=== PATIENT | male | born 1960 | race Caucasian/White ===

== ENCOUNTER → 2016-10-21 | Outpatient (CLI) | payer OTHER ==
[~2016-10-21] VITALS: Ht 182.9 cm; Wt 100.1 kg
[~2016-10-21] MED LIST: FIBETAB PO; MULT-506 PO; OMEG10007 PO
[2016-10-21 09:12] VITALS: BP 136/97; PULSE 85; Ht 182.9 cm; Wt 100.1 kg
== END | disposition home or self-care (01) ==
LOC: C.NEUR 08:58
PROVIDERS: ATTEND Internal Medicine Pulmonary Disease
DX: Z00.00 Encounter for general adult medical examination without abnormal findings (principal); R73.01 Impaired fasting glucose; G47.33 Obstructive sleep apnea (adult) (pediatric); E78.5 Hyperlipidemia, unspecified

== ENCOUNTER → 2016-10-22 | Day surgery (SDC) | payer BC, OTHER ==
[2016-10-10 11:02] VITALS: BMI 28.0
[~2016-10-22] VITALS: Ht 182.9 cm; Wt 95.5 kg
[~2016-10-22] MED LIST changes: +LIDOCAINE HCL 2% 2 ML VIAL (20MG/ML) ONE; +MIDAZOLAM HCL 1 MG/ML 2ML VIAL ONE; +ONDANSETRON INJ 2 MG/ML 2 ML VIAL ONE; +PROPOFOL IV EMULSION 10 MG/ML 20 ML VIAL IV ONE; +SODIUM CHLORIDE 0.9% 500ML 500 ML IV ONE
[2016-10-22 09:32] VITALS: Ht 182.9 cm; Wt 95.5 kg
--- NOTE | 2016-10-22 10:18 | Endo History and Physical ---
History & Physical Date of Service: Oct 22, 2016. Chief Complaint: 10 YEAR FOLLOW UP Referring Physician: DR DRIVER History of Present Illness 55 yo CM who presents for screening colonoscopy. Past Surgical History Hx Cardiac Surgery: No Hx Internal Defibrillator: No Hx Pacemaker: No Hx Abdominal Surgery: No Hx of Implantable Prosthesis: No Hx Post-Op Nausea and Vomiting: No Hx Cancer Surgery: No Hx Thoracic Surgery: No Hx Orthopedic: No Hx Urinary Tract Surgery: No Family History None Social History Smoking Status: Former Smoker Hx Substance Use: No Hx Alcohol Use: Yes (OCCASSIONALLY) Allergies Coded Allergies: No Known Allergies (Unverified , 10/22/16) Current Medications Reported Home Medications Medications Dose Route/Sig Max Daily Dose Days Date Category Fiber Complete (Fiber) 62.5 Mg Tab 1 Tab PO BID 10/10/16 Reported [place]-3 (Fish Oil) 1 Ea Cap 1 Cap PO BID 10/10/16 Reported Multivitamin (Multivitamins) Tab 1 Tab PO BID 10/10/16 Reported Vital Signs Weight (Kilograms): 95.45 Height (Feet): 6 Height (Inches): 0 Date Time Temp Pulse Resp B/P Pulse Ox O2 Delivery O2 Flow Rate FiO2 10/22/16 09:39 36.6 82 20 132/84 96 Room Air Physical Exam General Appearance: WD/WN, no apparent distress Respiratory/Chest: Auscultation: breath sounds normal Cardiovascular: Heart Auscultation: RRR Abdomen: Bowel Sounds: normal Inspection & Palpation: soft, non-distended, no tenderness, guarding & rebound Assessment and Plan Assessment: 55 yo CM who presents for screening colonoscopy. Plan: Proceed with colonoscopy.
--- NOTE | 2016-10-22 10:38 | Discharge Instructions ---
Endoscopy Patient Instructions Date / Procedure(s) Performed Oct 22, 2016. Colonoscopy Allergy Information Coded Allergies: No Known Allergies (Unverified , 10/22/16) Discharge Date / Findings Oct 22, 2016. Diverticulosis Colon polyp Medication Instructions Stopped Medication(s): FISH OIL OK to resume all medications today as prescribed Reported Home Medications Medications Dose Route/Sig Max Daily Dose Days Date Category Fiber Complete (Fiber) 62.5 Mg Tab 1 Tab PO BID 10/10/16 Reported [place]-3 (Fish Oil) 1 Ea Cap 1 Cap PO BID 10/10/16 Reported Multivitamin (Multivitamins) Tab 1 Tab PO BID 10/10/16 Reported Provider Instructions Activity Restrictions - No exercising or heavy lifting for 24 hours. - Do not drink alcohol the day of the procedure. - Do not drive a car or operate machinery until the day after the procedure. - Do not make any important decisions or sign important papers in 24 hours after the procedure. Following Day: - Return to full activity which may include returning to work/school. Diet Start your diet with liquids and light foods (jello, soup, juice, toast). Then eat your usual diet if not nauseated. Treatment For Common After Affects For mild abdominal pain, bloating, or excessive gas: - Rest - Eat lightly - Lie on right side Follow-Up Information Follow-up with DR DRIVER as scheduled Anesthesia Information What You Should Know You have had a procedure that required some medicine to reduce anxiety and discomfort. This treatment is called moderate sedation. After receiving the treatment, you may be sleepy, but you will be able to breathe on your own. The effects of the treatment may last for several hours. Follow these instructions along with Activity/Diet recommendations noted above: * Do NOT do anything where dizziness or clumsiness would be dangerous. * Rest quietly at home today, then you can be up and about tomorrow. * Have a responsible person stay with you the rest of today. * You may have had an I.V. today. If so, you may take the dressing off later today. Recommendations Call your doctor if: * Trouble breathing * Continuous vomiting for more than 24 hours * Temperature above 101 degrees * Severe abdominal pain or bloating * Pain not relieved by pain medicine ordered * There is increased drainage or redness from any incision * A large amount of rectal bleeding greater than 2-3 tablespoons. (If you had a polyp/s removed or have hemorrhoids, a small amount of blood - from the rectum is to be expected.) * You have any unanswered questions or concerns. IN THE EVENT OF A SERIOUS EMERGENCY, GO TO THE NEAREST EMERGENCY ROOM Your discharge instructions were prepared by provider George Trotter. Patient Instructions Signature Page Rafa Jacobo Patient (or Guardian) Signature/Date: I have read and understand the instructions given to me by my caregivers. Caregiver/RN/Doctor Signature/Date: The above-named patient and/or guardian has received patient instructions on this date. + Original Patient Signature Page (only) stays with chart. Please make copy for patient.
--- NOTE | 2016-10-22 10:43 | GI REPORT ---
Procedure Date: 10/22/2016 10:12 AM Procedure: Colonoscopy Indications: Screening for colorectal malignant neoplasm Medicines: Monitored Anesthesia Care Complications: No immediate complications. Estimated Blood Loss: Estimated blood loss: none. Procedure: Pre-Anesthesia Assessment: - Prior to the procedure, a History and Physical was performed, and patient medications and allergies were reviewed. The patient's tolerance of previous anesthesia was also reviewed. The risks and benefits of the procedure and the sedation options and risks were discussed with the patient. All questions were answered, and informed consent was obtained. Prior Anticoagulants: The patient has taken no previous anticoagulant or antiplatelet agents. ASA Grade Assessment: II - A patient with mild systemic disease. After reviewing the risks and benefits, the patient was deemed in satisfactory condition to undergo the procedure. After I obtained informed consent, the scope was passed under direct vision. Throughout the procedure, the patient's blood pressure, pulse, and oxygen saturations were monitored continuously. The scope was introduced through the anus and advanced to the terminal ileum. The colonoscopy was performed without difficulty. The patient tolerated the procedure well. The quality of the bowel preparation was good. The terminal ileum, ileocecal valve, appendiceal orifice, and rectum were photographed. Findings: Multiple small-mouthed diverticula were found in the sigmoid colon. A 5 mm polyp was found in the sigmoid colon. The polyp was sessile. The polyp was removed with a hot snare. Resection and retrieval were complete. Impression: - Diverticulosis in the sigmoid colon. - One 5 mm polyp in the sigmoid colon, removed with a hot snare. Resected and retrieved. Recommendation: - Resume previous diet. - Continue present medications. - Repeat colonoscopy for surveillance based on pathology results. - Return to primary care physician as previously scheduled. George Trotter DO 10/22/2016 10:42:46 AM This report has been signed electronically. Note Initiated On: 10/22/2016 10:12 AM
[2016-10-22 11:11] VITALS: BP 116/77; PULSE 80; O2SAT 98
--- NOTE | 2016-10-22 12:09 | Anesthesiology Progress Note ---
Anesthesia Post Op Note Date & Time Oct 22, 2016 at 12:08 Vital Signs Pain Intensity: 0 Vital Signs Past 12 Hours Date Time Temp Pulse Resp B/P Pulse Ox O2 Delivery O2 Flow Rate FiO2 10/22/16 11:11 80 16 116/77 98 Room Air 10/22/16 10:56 78 16 114/62 98 Room Air 10/22/16 10:41 82 16 113/60 93 Room Air 10/22/16 09:39 36.6 82 20 132/84 96 Room Air Notes Mental Status: alert / awake / arousable Nausea / Vomiting: adequately controlled Pain: adequately controlled Airway Patency, RR, SpO2: stable & adequate BP & HR: stable & adequate Hydration State: stable & adequate Anesthetic Complications: no major complications apparent
== END | disposition home or self-care (01) ==
LOC: C.GI 09:17
PROVIDERS: ATTEND Internal Medicine
DX: Z12.11 Encounter for screening for malignant neoplasm of colon (principal); Z87.891 Personal history of nicotine dependence; G47.33 Obstructive sleep apnea (adult) (pediatric); K21.9 Gastro-esophageal reflux disease without esophagitis; M19.90 Unspecified osteoarthritis, unspecified site; D12.5 Benign neoplasm of sigmoid colon; K57.30 Diverticulosis of large intestine without perforation or abscess without bleeding

== ENCOUNTER → 2016-12-03 | Outpatient (CLI) | payer OTHER ==
[~2016-12-03] MED LIST changes: -LIDOCAINE HCL 2% 2 ML VIAL (20MG/ML) ONE; -MIDAZOLAM HCL 1 MG/ML 2ML VIAL ONE; -ONDANSETRON INJ 2 MG/ML 2 ML VIAL ONE; -PROPOFOL IV EMULSION 10 MG/ML 20 ML VIAL IV ONE; -SODIUM CHLORIDE 0.9% 500ML 500 ML IV ONE
--- NOTE | 2016-12-04 06:42 | PAP/PSG TECHNICIAN REPORT ---
[facility] [employer] Instrument Maker Polysomnogram Report Study name: None Report date: 12/04/2016 Study date: 12/03/2016 Referring Physician: DR. NORMAN Name: MIKE CHAN Interpreting Physician: Vahe Norman M.D. Date of : 1960 Br[employer] Instrument Maker: Karin Mayer RPSGT. Sex: Male Age: 56 Study Type: PSG PAP Weight: 220.68 lbs 16 in Height: 56 years, Height 6' 0" Neck Circum: BMI: 29.93 Medications: FISH OIL 1000 MG Patient History 56 yr-old male here for a CPAP update study. He has been having difficulty getting comfortable with CPAP and a mask. He is currently on a pressure of 9 CMH2O at home. Tonight, he is wearing an Eson 2 nasal mask size large from [employer]. He then switched to a Quattro Air full face mask size large from [employer] due to mouth breathing. The test was started on room air and 4 CMH2O. ETCO2 testing was not utilized during this study. Room 1 Parameters Monitored NPSG: E1-M2, E2-M1, Fp1-M2, Fp2-M1, F3-M2, F4-M2, F4-M1, C3-M2, C4-M2, C4-M1, O1-M2, O2-M2, O2-M1, T3-M2, T4-M1, P3-M2, P4-M1, CHIN1, CHIN2, HR, EKG, Legs, PFLOW, SNOR, FLOW, CFLOW, Tidal Volume, THOR, ABDO, SpO2, PLTH, CPRESS, ETCO2 Wave, ETCO2, pH Sleep Architecture Sleep Stages Time at Lights Off 10:23:41 PM STAGES Time (min.) TST (%) Time at Lights On 5:25:41 AM Wake 109.0 -- Total Recording Time (TRT) 422.00 min. N1 89.5 29 Total Sleep Period (TSP) 377.0 min. N2 161.0 51 Total Sleep Time (TST) 313.0min. N3 19.5 6 Awake Time 109.0 min. REM 43.0 14 Wake after Sleep Onset 64.0 min. Sleep Efficiency (SE) 74 % Sleep Onset Latency (YULIANA) 45.0 min. Number of Stage 1 Shifts None Awakenings 23 Stage Changes 115 Number of REM periods 3 REM 43.0 14 REM Latency 124.5 min. NREM 270.0 86 Body Position Analysis Supine Right Left Side Prone Vertical Total Sleep Time (min.) 169.7 217.0 0.1 217.15 0.0 0.0 Total Sleep Time (%) 31% 69% 0% 69 0% N/A% Total Sleep Time REM (min.) 29.0 14.0 0.0 None 0.0 0.0 Total Sleep Time NREM (min.) 66.9 203.0 0.1 None 0.0 0.0 Intermittent Wake (min.) 73.8 34.0 1.2 None 0.0 0.0 Total Sleep Period (%) 35% None None None None None Arousals Myoclonus (PLM) * Events Count Index Events Count Index Spontaneous 40 8 Events Awake (PLMW) 81 44.6 Respiratory 49 9.4 Events Asleep w/ Arousal (PLMA) 61 11.7 PLM 61 12 Events Asleep w/o Arousal (PLMS) 130 24.9 Snoring 21 4 Total Asleep 191 36.6 Total 171 33 Total 272 39 Respiratory Analysis * CA OA MA CH H RERA Total Count 96 1 2 0 84 2 183 Index 18.4 0.2 0.4 0 16.1 0 35.5 Mean Duration 18.6 17.5 22.0 0.00 17.1 19.4 18.0 Longest Duration 28.2 17.5 22.8 0.00 22.8 20.8 36.3 Respiratory Event Summary Total Supine ~Supine Right Left Prone REM NREM Apneas Count 99 79 20 20 0 N/A 10 89 Index 19.0 49 6 5.5 0.0 N/A 14 20 Hypopneas (4% Desat) Count 84 26 58 58 0 N/A 6 78 Index 16.1 16.3 16 16.0 0.0 N/A 8.4 17.3 Apneas & All Hypopneas Count 183 105 78 78 0 N/A 16 167 Index 35.1 66 22 22 0 N/A 22.3 37.1 Respiratory Events (Transportation Maintenance Worker+All Hyp+RERA) Count 183 105 80 80 0 N/A 16 167 Index 35.5 66 22 22.1 0.0 N/A 22.3 37.6 Respiratory Related Arousal Count 49 105 15 15 0 N/A 0 49 Index 9.4 21 4 4 0 N/A 0 11 Snoring Analysis Supine Right Left Prone REM NREM Total Snore duration 11.1 min Snores count 203 66 0 N/A 39 230 269 Snore mean duration 2.5 Sec Snores index 127 18 0 N/A 54.4 51.1 51.6 TST with snoring (%) 3.6% Desaturation Event Summary: Minimum %SpO2 Event Count Mean/Min/Max Duration(sec.) Desaturation Index % Time In Bed > 90 243 22.5 / 8.3 / 60.0 37.3 94.5 86 - 90 3 14.6 / 8.3 / 23.8 8.1 5.4 81 - 85 0 N/A 0.0 0.1 76 - 80 0 N/A 0.0 0.0 71 - 75 0 N/A 0.0 0.0 66 - 70 0 N/A 0.0 0.0 61 - 65 0 N/A 0.0 0.0 56 - 60 0 N/A 0.0 0.0 51 - 55 0 N/A 0.0 0.0 < 50 0 N/A 0.0 0.0 Total REM NREM Awake <50% 0.0 min. 0.0 min. 0.0 min. 0.0 min. 51 - 60% 0.0 min. 0.0 min. 0.0 min. 0.0 min. 61 - 70% 0.0 min. 0.0 min. 0.0 min. 0.0 min. 71 - 80% 0.0 min. 0.0 min. 0.0 min. 0.0 min. 81 - 90% 22.7 min. 7.2 min. 10.1 min. 5.4 min. 91 - 100% 391.1 min. 35.8 min. 259.3 min. 96.1 min. Average 93 92 93 94 Minimum SpO2 81 84 86 81 Desaturation Event Index 34.5 26.5 44.4 13.8 # Desat. Events below 89% 9 4 3 2 Time(%) with Saturation below 89% 0.6 0.3 0.2 0.2 Time(min.) with Saturation below 89% 2.6 1.2 0.7 0.7 Time (mins) REM (mins) NREM (mins) % of TST SpO2 Below 90% 66 8 N58 1.5 SpO2 Below 88% 3 0 0 0 Heart Rate Analysis Min (bpm) Max (bpm) Average (bpm) Awake 45 141 69 NREM 56 82 65 REM 57 78 66 Overall 56 82 65 Supplemental O2 Values Minimum O2 level: None Value Start Time End Time Brass [employer] Instrument Maker Comments Mr. Chan slept in the right, left, and supine positions. No cardiac arrhythmias were noted. PLMs were noted. Episodes of bruxism were noted. CPAP was initiated at +4 CMH2O and up-titrated to a level of +5 CMH2O, Cflex 2. In the supine position, he had more central apneas than obstructive events, so he was placed on BiPAP at +8/4 CMH2O and up-titrated to a level of +12/5 CMH2O Biflex 2. He still continued to have central apneas in the supine position, so a rate of 13 BPM was then added. A Quattro Air full face mask size large from [employer] was used during titration He awoke to use the restroom one time during the night. Mr. Chan stated that he slept somewhat poorly. The final report will be interpreted and signed by a sleep physician. The completed physician report will then be placed in the patient medical record. Therapy Event: Therapy (cm H20) 4 5 8/4 10/5 11/5 /5 Total Time at Pressure (min.) 131.6 99.4 67.6 45.6 36.6 41.2 TST at Pressure (min.) 64.1 94.9 62.1 45.1 36.1 10.7 # Periods 1 1 1 1 1 1 Sleep Onset (min.) 45.0 0.0 0.0 0.0 0.0 0.0 REM Onset (min.) N/A 37.9 60.0 0.0 N/A N/A Sleep Efficiency % 48 95 91 98 98 25 Wakefulness (%) 51.3 4.5 8.1 1.1 1.4 74.1 Wakefulness (min.) 67.5 4.5 5.5 0.5 0.5 30.5 NREM 1 (%) 9.5 24.2 45.1 13.2 20.5 21.9 NREM 1 (min.) 12.5 24.0 30.5 6.0 7.5 9.0 NREM 2 (%) 39.2 37.6 35.5 38.8 78.2 4.1 NREM 2 (min.) 51.6 37.4 24.0 17.7 28.6 1.7 NREM 3 (%) 0.0 19.6 0.0 0.0 0.0 0.0 NREM 3 (min.) 0.0 19.5 0.0 0.0 0.0 0.0 REM (%) 0.0 14.1 11.2 46.9 0.0 0.0 REM (min.) 0.0 14.0 7.6 21.4 0.0 0.0 # Arousals 20 50 58 19 13 11 Arousal Index 18.7 31.6 56.0 25.3 21.6 61.9 # Snore 33 87 84 57 7 1 Snore Index 30.9 55.0 81.1 75.8 11.6 5.6 AHI 12.2 28.5 49.2 47.9 46.5 56.2 AHI Supine 108.0 81.1 76.8 37.6 N/A 30.0 AHI Non-Supine 4.1 5.5 26.4 72.6 46.5 62.3 NREM AHI 12.2 33.4 49.5 65.8 46.5 56.2 REM AHI N/A 0.0 47.3 28.0 N/A N/A RDI 14.0 28.5 49.2 47.9 46.5 56.2 # Obstructive 0 0 1 0 0 0 # Central Ap 7 37 37 15 0 0 # Mixed 0 0 1 1 0 0 # Hypopneas 6 8 12 20 28 10 RERAS 2 0 0 0 0 0 Total Respiratory Events 15 45 51 36 28 10 Time Below SpO2 89.00% (min.) 0.1 0.4 0.9 0.3 0.2 0.0 Mean NREM SpO2 (%) 93 93 93 93 94 93 Mean REM SpO2 (%) N/A 93 92 92 N/A N/A Mean Sleep SpO2 (%) 93 93 93 93 94 93 Min NREM SpO2 (%) 88 88 89 89 86 89 Min REM SpO2 (%) N/A 90 84 87 N/A N/A Position Supine (min.) 5.0 28.9 28.1 31.9 0.0 2.0 Position Non-supine (min.) 59.1 66.0 34.0 13.2 36.1 8.7 LM Index Sleep 40.3 32.3 57.0 35.9 16.6 5.6 LM Index NREM 40.3 33.4 56.1 30.4 16.6 5.6 LM Index REM N/A 25.7 63.1 42.1 N/A N/A Mean Heart Rate (bpm) 66 65 65 65 65 66 Min Heart Rate (bpm) 59 57 56 56 58 57 CPAP REPORT Therapy Detail Time / Page # Comment CPAP 4 cm H2O Nasal Mask Flex Pressure Relief Humidifier on 10:21:17 PM / pg. 144 CPAP 5 cm H2O Nasal Mask Flex Pressure Relief Humidifier on 12:35:17 AM / pg. 412 INCREASED FOR SOME HYPOPNEAS BiLevel 8/4 cm H2O Nasal Mask Flex Pressure Relief Humidifier on 2:14:38 AM / pg. 610 OVER HALF OF HIS EVENTS ARE CENTRAL APNEAS WHEN HE IS ON HIS BACK. SWITCHED OVER TO BIPAP DUE TO THE CENTRAL APNEAS AWAITING A POSITION CHANGE BiLevel 10/5 cm H2O Nasal Mask Flex Pressure Relief Humidifier on 3:22:17 AM / pg. 746 INCREASED IPAP FOR HYPOPNEAS AND INCREASED EPAP FOR APNEA BiLevel 10/5 cm H2O, Rate 13 bpm Nasal Mask Flex Pressure Relief Humidifier on 3:49:37 AM / pg. 800 DUE TO CONTINUED CENTRAL APNEAS, A RATE WAS ADDED BiLevel 11/5 cm H2O, Rate 13 bpm Nasal Mask Flex Pressure Relief Humidifier on 4:07:54 AM / pg. 837 INCREASED IPAP FOR HYPOPNEAS BiLevel 12/5 cm H2O, Rate 13 bpm Nasal Mask Flex Pressure Relief Humidifier on 4:44:31 AM / pg. 910 INCREASED IPAP FOR MORE HYPOPNEAS
--- NOTE | 2016-12-05 10:44 | POLYSOMNOGRAPH REPORT ---
CLINICAL DATA: A 56-year-old male with BMI of 29.93, referred by myself and Dr. Blake for a CPAP titration study. He has mild sleep apnea with a history of use of CPAP in the past. He had difficulty with mask leakage in the past. He previously had requirement for CPAP 9 cm of water pressure, C-Flex setting #2, but has not been on CPAP for several years. SLEEP ARCHITECTURE: Total sleep period was 377 minutes. Total sleep time was 313 minutes divided between 270 minutes of non-REM sleep and 43 minutes of REM sleep. Sleep onset latency was delayed at 45 minutes. REM latency was 124.5 minutes. Sleep efficiency was 74%. Wake after sleep onset was 64 minutes. Sleep consisted of stage N1 of 29%, N2 of 51%, N3 of 6%, REM 14%. AROUSAL DATA: 179 arousals recorded for an index of 33 per hour. 49 were due to respiratory events. 61 were due to PLMS events. PERIODIC LIMB MOVEMENTS DATA: Moderate PLMD was noted. There 191 limb movements during sleep noted for an index of 36.6 with arousal index of 11.7 per hour. RESPIRATORY DATA: The AHI was 35.1. The RDI was 35.5. There were 96 central, 1 obstructive, and 2 mixed apneic episodes. The longest apneic episode was 28.2 seconds. There were 84 hypopneic events. The longest duration of hypopnea was 22.8 seconds. There were 2 RERAs. The longest RERA was 20.8 seconds. OXIMETRY DATA: Transient nocturnal hypoxemia was seen. Oxygen neville was 84% during REM. The mean saturation was 93%. Time below 88% was 3 minutes. ELECTROCARDIOGRAM: Heart rates ranged from 56 to 82 beats per minute. No arrhythmias were noted. GRIEVANCE AND APPEALS COORDINATOR'S COMMENTS AND TREATMENT SUMMARY: The patient slept in the right, left, and supine positions. Episodes of bruxism were noted. The patient used a Quattro Air full facemask size large from [employer]. He was initially started on CPAP at 5 cm of water pressure, C-flex 2, but then had significant central apneic episodes. He was switched to BiPAP 8/4 and titrated up to 12/5, Bi-Flex 2 with a backup rate of 13 breaths per minute. No optimal treatment pressure level could be obtained. The lowest AHI obtained was 28.5 at a CPAP level of 5 cm of water pressure. At his final pressure setting with BiPAP, his AHI was 56.2. 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 The patient also had significant periodic limb movement disorder. RECOMMENDATIONS: The patient will be considered for a trial auto CPAP before considering BiPAP with a backup rate or ASV. READ
== END | disposition home or self-care (01) ==
LOC: C.NEUR 21:00
PROVIDERS: ATTEND Internal Medicine Pulmonary Disease
DX: G47.61 Periodic limb movement disorder (principal); G47.30 Sleep apnea, unspecified

== ENCOUNTER → 2016-12-10 | Outpatient (CLI) | payer OTHER ==
[~2016-12-10] VITALS: Ht 182.9 cm; Wt 98.1 kg
[2016-12-10 12:37] VITALS: BP 115/82; PULSE 94; BMI 29.3
[2016-12-10 13:09] VITALS: BP 115/82; PULSE 94; Ht 182.9 cm; Wt 98.1 kg
== END | disposition home or self-care (01) ==
LOC: C.NEUR 12:13
PROVIDERS: ATTEND Internal Medicine Pulmonary Disease
DX: G47.33 Obstructive sleep apnea (adult) (pediatric) (principal); G47.61 Periodic limb movement disorder

== ENCOUNTER → 2017-02-26 | Outpatient (CLI) | payer OTHER ==
[2017-02-26 13:12] LABS: ESTIMATED AVERAGE GLUCOSE 126 mg/dl; HA1C FLAG Normal (Normal)
[2017-02-26 13:58] LABS: CHOLESTEROL/HDL RATIO 4.1
== END | disposition home or self-care (01) ==
LOC: C.LABPVFM 08:02
PROVIDERS: ATTEND Family Medicine
DX: E78.5 Hyperlipidemia, unspecified (principal); R73.01 Impaired fasting glucose

== ENCOUNTER → 2017-03-07 | Outpatient (CLI) | payer OTHER ==
[~2017-03-07] VITALS: Ht 182.9 cm; Wt 96.3 kg
[2017-03-07 12:45] VITALS: BP 117/86; PULSE 85; Ht 182.9 cm; Wt 96.3 kg
== END | disposition home or self-care (01) ==
LOC: C.NEUR 12:22
PROVIDERS: ATTEND Internal Medicine Pulmonary Disease
DX: G47.33 Obstructive sleep apnea (adult) (pediatric) (principal); G47.61 Periodic limb movement disorder; R53.83 Other fatigue; F45.8 Other somatoform disorders

== ENCOUNTER → 2017-06-20 | Outpatient (CLI) | payer OTHER ==
[~2017-06-20] VITALS: Ht 180.3 cm; Wt 96.6 kg
[2017-06-20 13:07] VITALS: BP 129/92; PULSE 109; Ht 180.3 cm; Wt 96.6 kg
== END | disposition home or self-care (01) ==
LOC: C.NEUR 12:55
PROVIDERS: ATTEND Internal Medicine Pulmonary Disease
DX: G47.33 Obstructive sleep apnea (adult) (pediatric) (principal); G47.61 Periodic limb movement disorder

== ENCOUNTER → 2017-09-01 | Outpatient (CLI) | payer OTHER ==
[2017-09-01 13:16] LABS: ESTIMATED AVERAGE GLUCOSE 123 mg/dl; HA1C FLAG Normal (Normal)
[2017-09-01 13:27] LABS: BLOOD UREA NITROGEN 18 mg/dl (7-18); BUN/CREATININE RATIO 20.6 (10-20); CALCIUM 9.8 mg/dl (8.5-10.1); CARBON DIOXIDE 28 mmol/L (21-32); CHLORIDE 102 mmol/L (98-107); CREATININE 0.89 mg/dl (0.60-1.40); GLUCOSE 103 mg/dl (70-99); POTASSIUM 3.9 mmol/L (3.5-5.1); SODIUM 138 mmol/L (136-145)
== END | disposition home or self-care (01) ==
LOC: C.LABPVFM 11:02
PROVIDERS: ATTEND Family Medicine
DX: Z11.59 Encounter for screening for other viral diseases (principal); E73.9 Lactose intolerance, unspecified

== ENCOUNTER → 2017-12-16 | Outpatient (CLI) | payer OTHER ==
[~2017-12-16] VITALS: Ht 180.3 cm; Wt 100.8 kg
[2017-12-16 13:50] VITALS: BP 136/91; PULSE 89; Ht 180.3 cm; Wt 100.8 kg
== END | disposition home or self-care (01) ==
LOC: C.NEUR 12:50
PROVIDERS: ATTEND Physician Assistant Medical
DX: G47.33 Obstructive sleep apnea (adult) (pediatric) (principal); G47.61 Periodic limb movement disorder; F45.8 Other somatoform disorders

== ENCOUNTER → 2018-01-14 | Outpatient (CLI) | payer OTHER ==
--- NOTE | 2018-01-14 10:44 | DIAGNOSTIC IMAGING REPORT ---
R SHOULDER MIN 2 VIEWS ROUTINE CLINICAL HISTORY: RIGHT SHOULDER PAIN COMPARISON: None. DISCUSSION: No acute fractures or dislocations are visualized. There are no visible periarticular calcifications. There is mild superior distal clavicular spurring. IMPRESSION: 1. No fractures or dislocations identified 2. No visible periarticular calcifications 3. No destructive lesions are visualized on conventional radiographic imaging Electronically signed by: David Griggs M.D. 01/14/2018 10:42 AM Dictated Date/Time: 01/14/2018 10:41 AM
== END | disposition home or self-care (01) ==
LOC: C.RADPV 10:31
PROVIDERS: ATTEND Family Medicine
DX: M25.511 Pain in right shoulder (principal)

== ENCOUNTER → 2018-03-06 | Outpatient (CLI) | payer OTHER ==
[2018-03-06 13:40] LABS: ALBUMIN 4.3 gm/dl (3.4-5.0); ALKALINE PHOSPHATASE 60 U/L (45-117); ALT/SGPT 48 U/L (12-78); AST/SGOT 23 U/L (15-37); BLOOD UREA NITROGEN 15 mg/dl (7-18); CARBON DIOXIDE 28 mmol/L (21-32); CHOLESTEROL 179 mg/dl (0-200); CREATININE 1.05 mg/dl (0.60-1.40); GLUCOSE 129 mg/dl (70-99); LDL CHOLESTEROL CALCULATED 92 mg/dl; POTASSIUM 3.9 mmol/L (3.5-5.1); SODIUM 137 mmol/L (136-145); TOTAL PROTEIN 7.7 gm/dl (6.4-8.2)
[2018-03-06 13:46] LABS: HEMOGLOBIN A1C 6.1 % (4.5-5.6)
== END | disposition home or self-care (01) ==
LOC: C.LABPVFM 07:53
PROVIDERS: ATTEND Family Medicine
DX: M25.511 Pain in right shoulder (principal)